=== PATIENT | female | born 1955 | race Caucasian/White ===

== ENCOUNTER → 2016-08-16 | Outpatient (CLI) | payer OTHER ==
--- NOTE | 2016-08-17 14:42 | MAMMOGRAPHY REPORT ---
BILATERAL DIGITAL SCREENING MAMMOGRAM WITH CAD: 08/16/2016 CLINICAL HISTORY: Routine screening. Patient has no complaints. TECHNIQUE: Current study was also evaluated with a Computer Aided Detection (CAD) system. Bilateral CC and MLO views were obtained. COMPARISON: Comparison is made to exams dated: 08/11/2015 mammogram, 08/05/2014 mammogram, 07/30/2013 ma mmogram, 07/24/2012 mammogram, 07/19/2011 mammogram, and 07/13/2010 mammogram - [facility]. BREAST COMPOSITION: The tissue of both breasts is heterogeneously dense, which may obscure small mas ses. FINDINGS: No suspicious masses, calcifications, or areas of architectural distortion are noted in ei ther breast. There has been no significant interval change compared to prior exams. IMPRESSION: ACR BI-RADS CATEGORY 1: NEGATIVE There is no mammographic evidence of malignancy. A 1 year screening mammogram is recommended. The pa tient will receive written notification of the results. Approximately 10% of breast cancers are not detected with mammography. A negative mammographic report should not delay biopsy if a clinically suggestive mass is present. Renate France M.D. ah/:08/16/2016 17:03:13 Rn Hyperbaric: Michelle ESCALERA(Rosa)(M), [facility] letter sent: Normal 1/2 BI-RADS Code: ACR BI-RADS Category 1: Negative
== END ==
LOC: C.MAMM 16:44
PROVIDERS: ATTEND Family Medicine
DX: Z12.31 Encounter for screening mammogram for malignant neoplasm of breast (principal)

== ENCOUNTER → 2017-10-08 | Outpatient (CLI) | payer OTHER ==
[~2017-10-08] MED LIST: GADAVIST IV PRN
--- NOTE | 2017-10-09 15:22 | MAMMOGRAPHY REPORT ---
BREAST MRI OF BOTH BREASTS: 10/08/2017 CLINICAL HISTORY: 62-year-old woman with recently diagnosed left breast invasive ductal carcinoma in the 3:00 axis. She has heterogeneously dense breasts and presents for preoperative MRI to assess exte nt of disease. COMPARISON: Comparison was made to prior ultrasound-guided core biopsy and postprocedure mammograms f rom 09/17/2017, diagnostic mammograms and ultrasound dated 09/05/2017, screening mammograms dated 018, 08/16/2016, 08/11/2015, 08/05/2014. TECHNIQUE: Using a 1.5 Karla magnet and dedicated breast coil, multisequence axial images were obtain ed through the breasts. After uneventful IV administration of 8.5 mL of Gadavist, dynamic multiphase contrast-enhanced axial images, and sagittal postcontrast were obtained. Temporal subtraction axial images and 3-D MIP images are provided. Everything was then reviewed on a 3-D workstation, [employer]. FINDINGS: Right breast: There is mild background parenchymal enhancement of the right breast. No suspicious en hancing mass, suspicious non-mass enhancement, architectural distortion or suspicious kinetics identi fied in the right breast. No focal skin thickening or nipple retraction. No suspicious right axilla ry lymphadenopathy. Left breast: There is minimal background parenchymal enhancement of the left breast. There is subtle focal non-mass enhancement and associated architectural distortion, also containing internal biopsy marker clip in the 3:00 middle one third of the left breast, 6.8 cm distal to the nipple. The biopsy marker clip is located towards the anterior aspect of this focal non-mass enhancement which measures 2.3 cm in AP by 1.1 cm in transverse by 1.0 cm in craniocaudal dimension. This focal non-mass enhan cement demonstrates persistent type kinetics and is consistent with the biopsy-proven carcinoma, odalis esponding with the subtle architectural distortion seen mammographically. This lesion is located 1.5 cm deep to the dermis and there is no evidence of overlying skin thickening or nipple retraction. T he retromammary fat is intact. No suspicious left axillary, subpectoral or internal mammary lymphade nopathy identified. IMPRESSION: ACR BI-RADS CATEGORY 6: KNOWN BIOPSY PROVEN MALIGNANCY 1. Subtle focal non-mass enhancement and associated architectural distortion in the 3:00 middle one third of the left breast, measuring 2.3 x 1.1 x 1.1 cm, representing the recent biopsy-proven carcino ma. 2. No other suspicious enhancing masses, non-mass enhancement or suspicious kinetics identified in t he left breast. No suspicious left axillary adenopathy. 3. No MRI evidence of malignancy in the right breast. No suspicious right axillary adenopathy. Evangelina Perez M.D. ay/:10/08/2017 21:47:14 Release Specialist: grab setter, [facility] letter sent: Birad 6 BI-RADS Code: ACR BI-RADS Category 6: Known Biopsy Proven Malignancy
== END | disposition home or self-care (01) ==
LOC: C.MRI 06:30
PROVIDERS: ATTEND Surgery
DX: Z01.818 Encounter for other preprocedural examination (principal); C50.412 Malignant neoplasm of upper-outer quadrant of left female breast; Z17.0 Estrogen receptor positive status [ER+]